=== PATIENT | female | born 1945 | race Caucasian/White ===

== ENCOUNTER 2018-01-23 03:00 | Inpatient (IN) | payer OTHER ==
[~2018-01-23] VITALS: Ht 162.6 cm; Wt 97.1 kg
[~2018-01-23 03:00] MED LIST: CALCIUM 600 +1 EAC4 PO; DETROL LA4 M1 PO; HYDROCHLOROTHIA50 M1 PO; ICAPS TABLET1 EACH PO; NAPROXEN500 M2 PO; ZOLOFT25 M1 PO
--- NOTE | 2018-02-13 13:28 | Admission Core Measures ---
Acute Coronary Syndrome (CM) ACS Core Measures Acute Coronary Syndrome Diagnosis No Congestive Heart Failure (NEW) CHF Core Measures Congestive Heart Failure Diagnosis No Cerebrovascular Accident CVA Core Measures CVA/TIA Diagnosis No Venous Thromboembolism VTE Core Trevor (View Protocol) VTE Risk Factors Surgery No Mechanical VTE Prophylaxis d/t N/A MechProphylax Ordered No VTE Pharm Prophylaxis d/t NA PharmProphylax ordered Problem List As ranked by this Provider includes Assessment & Plan 1. Unilateral primary osteoarthritis, right knee HOME MEDS Home Med List B2/Vit A,C & E/Lut/Zeaxanth/Mn (Icaps Tablet) 3,300-200 TABLET.ER 1 TAB PO DAILY SUPPLEMENT (Reported) Calcium Carbonate/Vitamin D3 (Calcium 600 + Vit D 400 Softgl) 600 MG-400 CAPSULE 1 CAP PO DAILY SUPPLEMENT (Reported) Hydrochlorothiazide 50 MG TABLET 1 TAB PO DAILY DIURETIC (Reported) Naproxen 500 MG TABLET 1 TAB PO PRN PAIN/INFLAMMATION (Reported) Sertraline HCl (Zoloft) 25 MG TABLET 75 MG PO DAILY DEPRESSION (Reported) Tolterodine Tartrate (Detrol LA) 4 MG CAP.ER.24H 1 CAP PO DAILY BLADDER ( Reported)
[2018-02-13] MEDS ORDERED: MIRALAX17 G1 PO (13:29)
[2018-02-13] MEDS ORDERED: COLACE100 M1 PO (13:29)
[2018-02-13] MEDS ORDERED: PRILOSEC OTC20 M1 PO (13:29)
[2018-02-13] MEDS ORDERED: ASPIRIN EC325 M2 PO (13:29)
[2018-02-13] MEDS ORDERED: DILAUDID2 M1 PO (13:29)
--- NOTE | 2018-02-13 13:56 | Patient Discharge Instructions ---
Discharge Instructions General Discharge Information You were seen/treated for: Right knee pain related to unilateral primary osteoarthritis You had these procedures: Right total knee replacement Watch for these problems: Increasing pain despite the use of pain medication Increasing redness, warmth or swelling Drainage of any type from incision Inability to bear weight on operative leg Persistent nausea and vomiting Fever greater than 101.5 degrees Do not soak the wound: Yes No bath, but you may shower: Yes Other wound care: Please keep wound clean and dry. No ointments or lotions of any type on or near incision at any time. No exceptions. Your dressing will be changed by your nurse on the second day after your surgery. Daily dry dressing changes are recommended each day thereafter. Do not soak your wound in a bath at any time until otherwise indicated by your surgeon. You may shower, please dry wound immediately after shower with a clean towel. Special Instructions: Aspirin: You are taking this medication to help prevent blood clot formation. Please take with food to protect your stomach lining. Please take as directed. Constipation: Pain medication can cause constipation. Dr. Edmond has recommended that you take Colace and miralax each day. You may discontinue this medication if you develop loose stool or diarrhea. If you wish to continue this medication, it is available over the counter. If you are unable to move your bowels after several days, if you are unable to pass gas and are developing bloating, nausea, or vomiting as a result, please contact your doctor. Diet Continue normal diet: Yes Activity Full Activity/No Limits: No Activity Self Limited: Yes Pounds, do NOT lift more than: 10 Activity Limited to: Weight bear as tolerated Acute Coronary Syndrome Inclusion Criteria At DC or during hospital stay patient has or had the following: ACS DIAGNOSIS No Discharge Core Measures Meds if any: Prescribed or Continued at Discharge Meds if any: NOT Prescribed or Continued at Discharge Congestive Heart Failure Inclusion Criteria At DC or during hospital stay patient has or had the following: CHF DIAGNOSIS No Discharge Core Measures Meds if any: Prescribed or Continued at Discharge Meds if any: NOT Prescribed or Continued at Discharge Cerebrovascular accident Inclusion Criteria At DC or during hospital stay patient has or had the following: CVA/TIA Diagnosis No Discharge Core Measures Meds if any: Prescribed or Continued at Discharge Meds if any: NOT Prescribed or Continued at Discharge Venous thromboembolism Inclusion Criteria VTE Diagnosis No VTE Type NONE VTE Confirmed by (Test) NONE Discharge Core Measures - Per Current guidelines, there needs to be overlap - treatment for the first 5 days of Warfarin therapy. - If discharged on Warfarin prior to 5 days of - overlap therapy, the patient will need to be - assessed for post discharge needs including - *Post discharge parental anticoagulation - *Warfarin and/or parental anticoagulation education - *Follow up date to check INR post discharge At least 5 days overlap therapy as Inpatient No Meds if any: Prescribed or Continued at Discharge Note: Overlap Therapy is Warfarin and Anticoagulant Meds if any: NOT Prescribed or Continued at Discharge
--- NOTE | 2018-02-13 13:58 | Surgical Discharge Summary ---
Visit Information Visit Dates Admission Date: 02/13/18 Discharge Date: 02/15/18 History of Present Illness Chief Complaint: Right knee pain related to unilateral primary osteoarthritis Surgical History Pertinent Surgical History: non-contributory Review of Systems: See H&P Hospital Course Course Attending Physician: River Edmond MD Primary Care Physician: Josefina RICHARDSON,[facility] [place] Hospital Course: Patient was admitted to the hospital for an elective total joint replacement. The procedure was tolerated well and patient was transferred to a general surgical floor. Diet was advanced and tolerated. The patient was evaluated and treated by physical therapy. At the time of hospital discharge, the vital signs were stable, neurovascular status was intact, and pain was controlled with the use of oral pain medications. Complications: None Allergies: Coded Allergies: Penicillins (RASH 01/16/18) amoxicillin (UNKNOWN 01/22/18) AMOXICILLIN PER ANTIBIOTIC ORDER SHEET OF 01/22/18 (S) Disposition Summary Disposition Principal Diagnosis: Right knee unilateral primary osteoarthritis Additional Diagnosis: s/p right total knee replacement (02/13/18) Discharge Disposition: home health services Discharge Instructions General Discharge Information Code Status: Full Code Patient's Diet: Regular, advance as tolerated Patient's Activity: WBAT Follow-Up Instructions/Appts: staple removal in 2 weeks Follow up with Dr. Edmond in 6 weeks from date of surgery. Please call office to arrange &/or confirm this appointment. Medications at Discharge Discharge Medications: Continue taking these medications: Hydrochlorothiazide (Hydrochlorothiazide) 50 MG TABLET 1 Tablet ORAL DAILY Sertraline HCl (Zoloft) 25 MG TABLET 75 Milligram ORAL DAILY Tolterodine Tartrate (Detrol LA) 4 MG CAP.ER.24H 1 Capsule ORAL DAILY B2/Vit A,C & E/Lut/Zeaxanth/Mn (Icaps Tablet) 3,300-200 TABLET.ER 1 Tablet ORAL DAILY Calcium Carbonate/Vitamin D3 (Calcium 600 + Vit D 400 Softgl) 600 MG-400 CAPSULE 1 Capsule ORAL DAILY Naproxen (Naproxen) 500 MG TABLET 1 Tablet ORAL as needed for PAIN/INFLAMMATION Start taking the following new medications: Aspirin (Ecotrin*) 325 MG TABLET.DR 1 Tablet ORAL TWICE DAILY Qty = 60 No Refills Docusate Sodium (Colace) 100 MG CAPSULE 1 Capsule ORAL TWICE DAILY Qty = 14 No Refills Instructions: DISCONTINUE USE IF YOU DEVELOP LOOSE STOOL OR DIARRHEA Polyethylene Glycol 3350 (Miralax) 17 GRAM POWD.PACK 1 Packet ORAL DAILY Qty = 7 No Refills Instructions: dissolve in water, DISCONTINUE USE IF YOU DEVELOP LOOSE STOOL OR DIARRHEA Hydromorphone HCl (Dilaudid) 2 MG TABLET 1-2 Tablet ORAL EVERY 4-6 HOURS NEEDED as needed for PAIN Qty = 36 No Refills Omeprazole Magnesium (Prilosec Otc) 20 MG TABLET.DR 1 Tablet ORAL DAILY Qty = 30 No Refills Copies To: Josefina RICHARDSON,Carie
--- NOTE | 2018-02-13 16:14 | PN- Orthopedic ---
Subjective Subjective: POST-OP NOTE No complaints in pacu. Taking ice chips. No nausea. Denies dizziness. No shortness of breath. No chest pains. Not yet out of bed. Her goal is for home dispo in 2-3 days. Objective Vital Signs and I&Os pacu flowsheet reviewed, vss Physical Exam: General - alert & oriented x 3. comfortable. no acute distress. Lungs - clear bilaterally. no w/r/r. Cardiac - s1s2. reg. Abdomen - soft. nontender. Extremities - warm bilaterally. no c/c/e. right knee dressing c/d/i. ice pack in place over right knee. some residual block effect, but able to move toes. athrombics active b/l. Current Medications: Current Medications Sig/Sin Start time Last Medication Dose Route Stop Time Status Admin Acetaminophen 0 .STK-MED ONE 02/13 1217 DC PO Acetaminophen 975 MG ONCE 02/13 0000 NR PO 02/13 2359 Cefazolin Sodium 2,000 MG ONCE 02/13 0000 AC IV 02/13 2359 Midazolam HCl 0 .STK-MED ONE 02/13 1239 DC .ROUTE Oxycodone HCl 0 .STK-MED ONE 02/13 1216 DC PO Oxycodone HCl 10 MG ONCE 02/13 0000 NR PO 02/13 2359 Assessment/Plan Assessment/Plan This 72 year old female with hx htn, urinary incontinence, depression, is POD#0 s/p right total knee replacement for primary osteoarthritis advance diet as tolerated pain control as ordered kendall-operative ancef x 2 doses asa bid - dvt ppx PT eval f/u AM labs home meds restarted dressing change POD#2 d/c planning, her goal is for home in 2-3 days will d/w Core Measures Venous Thromboembolism VTE Risk Factors Surgery No Mechanical VTE Prophylaxis d/t N/A MechProphylax Ordered No VTE Pharm Prophylaxis d/t NA PharmProphylax ordered
--- NOTE | 2018-02-13 16:41 | Operative Report ---
Operative/Inv Procedure Report Surgery Date: 02/13/18 Name of Procedure: Right total knee replacement Pre-Operative Diagnosis: Primary Right knee DJD Post-Operative Diagnosis: Same Estimated Blood Loss: 50ml to 100ml Surgeon/Office Assistant Receptionist: Mayito RICHARDSON,River Peterson Anesthesia: block Operative/Procedure Note Note: Description of Procedure: The patient was taken to the operating room and positively identified. After induction of spinal anesthesia and administration of appropriate pre-operative antibiotics, the patient was positioned supine on the operating room table and all bony prominences were well padded. A well-padded pneumatic tourniquet was placed on the right upper thigh. After performing a surgical timeout, the right lower extremity was prepped and draped in the usual sterile fashion. After exsanguination with Esmarch the tourniquet was inflated to 250mm of mercury. A standard medial parapatellar approach was made to the knee. This was carried down through skin and subcutaneous tissue to the level of the fascia. Meticulous hemostasis was maintained with Bovie electrocautery. The extensor mechanism and patellar retinaculum were opened sharply and the patella was everted. The infrapatellar fat was resected in order to improve exposure. Osteophytes were trimmed from the patella and femoral condyles and the patella was re-everted and tucked laterally. A medial release was performed and the cruciate ligaments were resected. The tibia was then subluxed anteriorly. Utilizing the appropriate extra-medullary guide, the proximal tibia was trimmed perpendicular to the long axis of the tibial shaft. Attention was then turned to the femur. After opening the medullary canal, the distal femoral cut was made in 6 degrees of valgus utilizing the appropriate intra-medullary guide. The extension gap was checked and found to be appropriate. The femur was then sized and the remainder of the femoral cuts were made with a size 3 4-in-1 femoral cutting guide. The flexion gap was checked and found to be symmetric and appropriate. The knee was then trialed with a size 3 femoral component, a size 3 tibial component and a size 11 mm polyethylene insert. The patella was trimmed to accept an A32 patella. This yielded excellent range of motion, stability and patellar tracking. All trial components were removed and the knee was copiously irrigated with sterile saline. All components were cemented into place with Alexander Simplex cement. All the components were of the [employer] Tri[employer] knee system of the above stated sizes. The knee was again irrigated after cementation. The extensor mechanism and patellar retinaculum were repaired using interrupted #1 vicryl suture. The skin was re-approximated with 2-0 vicryl and closed with yvonne. A sterile dressing was applied, the tourniquet was deflated, the patient was awakened and taken to the recovery room in satisfactory condition.
[2018-02-13 17:27] VITALS: BP 104/64
[2018-02-13 21:00] VITALS: BP 122/64
[2018-02-14 02:05] VITALS: BP 142/68
[2018-02-14 06:00] VITALS: BP 108/64
--- NOTE | 2018-02-14 08:16 | PN- Orthopedic ---
Subjective Subjective: Pt. has no complaints. Comfortable on current regimen No issues over night. Objective Vital Signs and I&Os Vital Signs Date Time Temp Pulse Resp B/P B/P Pulse O2 O2 Flow FiO2 Mean Ox Delivery Rate 02/14 0600 97.7 59 18 108/64 96 Room Air 02/14 0205 97.8 75 18 142/68 94 Room Air 02/13 2100 97.5 67 18 122/64 95 Room Air 02/13 1727 97.4 73 18 104/64 95 Room Air Intake & Output 02/14 1600 02/14 0800 02/14 0000 02/13 1600 02/13 0800 02/13 0000 Intake Total 1140 675 Output Total 150 0 Balance 990 675 Intake, IV 900 450 Intake, Oral 240 225 Number 0 0 Bowel Movements Output, Urine 150 0 Patient 214 lb 190 lb Weight Weight Bed scale Reported by Patient Measurement Method Alert , oriented,looks very well. Stable vital signs. Lungs are clear Heart regular Abdomen benign without distention. R Knee with bandage , ambulating , CMS intact. Assessment/Plan Assessment/Plan s/p R TKR for DJD POD#1 Stable Progressing well as expected. Continue current pain management ASA as per surgeon's request. Working with PT to increase endurance/ mobility Borderline urinary output. Will continue IVF for now and hep lock later. Anticipate d/c home in 24 to 48 hrs Dressing change tomorrow. Core Measures Venous Thromboembolism VTE Risk Factors Surgery No Mechanical VTE Prophylaxis d/t N/A MechProphylax Ordered No VTE Pharm Prophylaxis d/t NA PharmProphylax ordered
[2018-02-14 08:34] LABS: ABSOLUTE BASOPHIL COUNT 0 /CUMM (0.0-0.2); ABSOLUTE EOSINOPHIL COUNT 0 /CUMM (0.0-0.7); ABSOLUTE GRANULOCYTE CT 11.6 /CUMM (1.4-6.5); ABSOLUTE LYMPH COUNT 0.9 /CUMM (1.2-3.4); ABSOLUTE MONOCYTE COUNT 0.9 /CUMM (0.10-0.60); BASOPHIL % 0.2 % (0.0-2.0); EOSINOPHIL % 0.2 % (0-5); GRANULOCYTE % 86.3 % (42.2-75.2); MEAN CORPUSCULAR HGB 31.5 PG (27.0-31.0); MEAN CORPUSCULAR HGB CONC 34.2 G/DL (33.0-37.0); MEAN CORPUSCULAR VOLUME 91.9 FL (81.0-99.0); MEAN PLATELET VOLUME 9.8 FL (7.4-10.4); PLATELET COUNT 213 /CUMM (130-400); RBC DISTRIBUTION WIDTH 13.2 % (11.5-14.5); RED BLOOD CELL CT 3.81 /CUMM (4.20-5.40); WHITE BLOOD CELL COUNT 13.4 /CUMM (4.8-10.8)
[2018-02-14 14:47] VITALS: BP 110/60
[2018-02-14 18:25] VITALS: BP 125/78
[2018-02-14 21:54] VITALS: BP 110/60
[2018-02-15 07:06] VITALS: BP 116/74
--- NOTE | 2018-02-15 08:58 | PN- Orthopedic ---
Subjective Subjective: Reports pain controlled with dilaudid. Tolerating diet. No nausea. Doing well with PT. No shortness of breath. No chest pains. No dizziness. Urinating well. Has to do stairs prior to going home, which she anticipates later today. Objective Vital Signs and I&Os Vital Signs Date Time Temp Pulse Resp B/P B/P Pulse O2 O2 Flow FiO2 Mean Ox Delivery Rate 02/15 0706 100.2 76 18 116/74 96 Room Air 02/14 2154 98.3 73 20 110/60 96 Room Air 02/14 1825 97.5 63 20 125/78 97 Room Air 02/14 1447 97.9 65 20 110/60 98 Room Air Intake & Output 02/15 1600 02/15 0800 02/15 0000 02/14 1600 02/14 0800 02/14 0000 Intake Total 480 1200 1140 675 Output Total 150 0 Balance 480 1200 990 675 Intake, IV 400 900 450 Intake, Oral 480 800 240 225 Number 0 0 0 Bowel Movements Output, Urine 150 0 Patient 214 lb 190 lb Weight Weight Bed scale Reported by Patient Measurement Method Physical Exam: General - alert & oriented x 3. comfortable. out of bed to chair. Lungs - clear bilaterally. no w/r/r. Cardiac - s1s2. reg. Abdomen - soft. nontender. Extremities - warm bilaterally. right leg dressing removed. incision well approximated with yvonne. no erythema or exudates. calves soft and nontender b/ l. nvi. Current Medications: Current Medications Sig/Sin Start time Last Medication Dose Route Stop Time Status Admin Acetaminophen 1,000 MG Q6 02/13 1800 DC 02/14 IV 02/14 1201 1208 Aspirin Buffered 325 MG BID 02/13 2100 AC 02/15 PO 0820 Dextrose/Sodium 1,000 ML .[id number] 02/13 171 DC 02/14 Chloride IV 0523 Docusate Sodium 100 MG BID 02/13 2100 AC 02/15 PO 0821 Hydrochlorothiazide 50 MG DAILY 02/14 0900 AC 02/15 PO 0820 Hydromorphone HCl 2 MG Q4P PRN 02/13 171 AC PO Hydromorphone HCl 4 MG Q4P PRN 02/13 1715 AC 02/15 PO 0820 Morphine Sulfate 2 MG Q2P PRN 02/13 171 AC 02/15 IV 0324 Omeprazole 40 MG DAILY AC 02/14 0700 AC 02/15 PO 0533 Ondansetron HCl 4 MG Q6P PRN 02/13 1715 AC IV Oxybutynin Chloride 2.5 MG BID 02/13 2100 AC 02/15 PO 0821 Polyethylene Glycol 17 GM DAILY 02/14 0900 AC 02/15 PO 0820 Promethazine HCl 12.5 MG Q6P PRN 02/13 1715 AC IV 02/20 1329 Sertraline HCl 75 MG 02/14 0100 AC 02/15 PO 0821 Results Last 48 Hours of Labs: Laboratory Tests 02/14 700 Chemistry Sodium (137 - 145 mmol/L) 134 L Potassium (3.5 - 5.1 mmol/L) 3.8 Chloride (98 - 107 mmol/L) 97 L Carbon Dioxide (22 - 30 mmol/L) 26 Anion Gap (5 - 16) 11 BUN (7 - 17 mg/dL) 14 Creatinine (0.5 - 1.0 mg/dL) 0.6 Estimated GFR (>60 ml/min) > 60 BUN/Creatinine Ratio (7 - 25 %) 23.3 Hematology CBC w Diff MAN DIFF ORDERED WBC (4.8 - 10.8 /CUMM) 13.4 H RBC (4.20 - 5.40 /CUMM) 3.81 L Hgb (12.0 - 16.0 G/DL) 12.0 Hct (37 - 47 %) 35.0 L MCV (81.0 - 99.0 FL) 91.9 MCH (27.0 - 31.0 PG) 31.5 H MCHC (33.0 - 37.0 G/DL) 34.2 RDW (11.5 - 14.5 %) 13.2 Plt Count (130 - 400 /CUMM) 213 MPV (7.4 - 10.4 FL) 9.8 Gran % (42.2 - 75.2 %) 86.3 H Lymphocytes % (20.5 - 51.1 %) 6.9 L Monocytes % (1.7 - 9.3 %) 6.4 Eosinophils % (0 - 5 %) 0.2 Basophils % (0.0 - 2.0 %) 0.2 Absolute Granulocytes (1.4 - 6.5 /CUMM) 11.6 H Segmented Neutrophils (42.2 - 75.2 %) 69 Band Neutrophils (0.0 - 5.0 %) 13 H Absolute Lymphocytes (1.2 - 3.4 /CUMM) 0.9 L Lymphocytes (20.5 - 51.1 %) 11 L Monocytes (1.7 - 9.3 %) 6 Absolute Monocytes (0.10 - 0.60 /CUMM) 0.9 H Absolute Eosinophils (0.0 - 0.7 /CUMM) 0 Basophils (0.0 - 2.0 %) 1 Absolute Basophils (0.0 - 0.2 /CUMM) 0 Platelet Estimate (ADEQUATE) VERIFIED BY SMEAR Normocytic RBCs VERIFIED Normochromic RBCs VERIFIED Assessment/Plan Assessment/Plan This 72 year old female with hx htn, depression, POD#2 s/p right total knee replacement for primary knee DJD tolerating diet pain controlled dressing changed continue PT, to do stairs today continue asa bid bowel regime ordered reviewed IST d/c home if clears stairs today with PT will d/w Core Measures Venous Thromboembolism VTE Risk Factors Surgery No Mechanical VTE Prophylaxis d/t N/A MechProphylax Ordered No VTE Pharm Prophylaxis d/t NA PharmProphylax ordered
[2018-02-15] MEDS ORDERED: OMEPRAZOLE20 M3 PO (11:59)
[2018-02-15] MEDS ORDERED: COLACE100 M1 PO (11:59)
[2018-02-15] MEDS ORDERED: DILAUDID2 M1 PO (11:59)
[2018-02-15] MEDS ORDERED: MIRALAX17 G1 PO (11:59)
[2018-02-15] MEDS ORDERED: ASPIRIN EC325 M2 PO (11:59)
== END 2018-02-15 12:27 | disposition home health service (06) | DRG 470 ==
LOC: SDA 03:00 → UNDOADMIN 03:00 → SDA 02-13 01:58 → ENRESERV 02-13 16:00 → ENTRNSPT 02-13 16:50 → EDTRNSPTSTS 02-13 16:57 → EDTRNSPT 02-13 16:57 → 2NA 02-13 17:07 → CMPTRNSPT 02-13 17:18 → ENPENDDIS 02-15 09:29 → ENTRNSPT 02-15 12:15 → 2NA 02-15 12:27 → EDTRNSPTSTS 02-15 12:32 → EDTRNSPT 02-15 12:32 → CMPTRNSPT 02-15 13:10
PROVIDERS: Nurse Practitioner
PROC: 0SRC0J9 Replacement of Right Knee Joint with Synthetic Substitute, Cemented, Open Approach (ICD-10-PCS; principal; 2018-02-13)
DX: M17.11 Unilateral primary osteoarthritis, right knee (principal); Z85.3 Personal history of malignant neoplasm of breast; Z85.038 Personal history of other malignant neoplasm of large intestine; G47.33 Obstructive sleep apnea (adult) (pediatric); I10 Essential (primary) hypertension; E78.5 Hyperlipidemia, unspecified; F32.9 Major depressive disorder, single episode, unspecified; G47.00 Insomnia, unspecified; G47.30 Sleep apnea, unspecified; Z87.891 Personal history of nicotine dependence; M85.80 Other specified disorders of bone density and structure, unspecified site
CPT/HCPCS: 2NAP; SDA; 36592; 82436; 97110-GO; 97116-GO; 97161-GP; 97530-GO; C1713; C9290; J0131; J0690; J2550; J7042